=== PATIENT | male | born 1995 ===

== ENCOUNTER 2018-06-14 13:18 | Inpatient (IN) | payer OTHER ==
[2018-06-14] MEDS ORDERED: Iohexol 240 (50 ml) PO ONE (14:22)
[2018-06-14] MEDS ORDERED: Sodium Chloride 0.9% 1,000 ML IV STA (14:23)
--- NOTE | 2018-06-14 14:28 | ED PDOC ---
HPI: Abdomen Time Seen by Provider: 06/14/18 13:48 Chief Complaint (Nursing): Abdominal Pain Chief Complaint (Provider): Abdominal pain History Per: Patient History/Exam Limitations: no limitations Onset/Duration Of Symptoms: Days Current Symptoms Are (Timing): Still Present Location Of Pain/Discomfort: RLQ Additional History Per: Patient Additional Complaint(s): 22yo male, otherwise well, comes to ER reports right lower quadrant abdominal pain x 1 day. Patient reports associated subjective fever and vomiting as well. No chest pain, shortness of breath, diarrhea or constipation. No other complaints. Past Medical History Reviewed: Historical Data, Nursing Documentation, Vital Signs Vital Signs: Last Vital Signs Temp 101.9 F H 06/14/18 13:20 Pulse 116 H 06/14/18 13:20 Resp 16 06/14/18 13:20 BP 141/71 06/14/18 13:20 Pulse Ox 100 06/14/18 13:20 - Medical History PMH: No Chronic Diseases - Surgical History Surgical History: No Surg Hx - Family History Family History: States: No Known Family Hx - Allergies Allergies/Adverse Reactions: Allergies Allergy/AdvReac Type Severity Reaction Status Date / Time shrimp Allergy SWELLING Verified 06/14/18 13:20 Review of Systems ROS Statement: Except As Marked, All Systems Reviewed And Found Negative Constitutional: Positive for: Fever (subjective) Cardiovascular: Negative for: Chest Pain Respiratory: Negative for: Shortness of Breath Gastrointestinal: Positive for: Vomiting, Abdominal Pain. Negative for: Diarrhea, Constipation Musculoskeletal: Negative for: Back Pain Physical Exam - Reviewed Nursing Documentation Reviewed: Yes Vital Signs Reviewed: Yes - Physical Exam Appears: Positive for: Non-toxic Head Exam: Positive for: ATRAUMATIC, NORMAL INSPECTION, NORMOCEPHALIC Skin: Positive for: Normal Color Eye Exam: Positive for: Normal appearance Neck: Positive for: Normal, Supple Cardiovascular/Chest: Positive for: Regular Rate, Rhythm Respiratory: Positive for: Normal Breath Sounds Gastrointestinal/Abdominal: Positive for: Soft, Tenderness (right lower quadrant tenderness; +McBurney's point tenderness). Negative for: Mass, Guarding, Rebound Back: Positive for: Normal Inspection Extremity: Positive for: Normal ROM. Negative for: Pedal Edema Neurologic/Psych: Positive for: Alert, Oriented - ECG O2 Sat by Pulse Oximetry: 100 (RA) Pulse Ox Interpretation: Normal Medical Decision Making Medical Decision Making: Impression: Abdominal pain r/o appendicitis Plan: -- Labs -- CT Abdomen/Pelvis w/ PO & IV Contrast -- IV Fluids -- Tylenol 650mg PO -- Toradol 30mg IV -- Pepcid 20mg IV -- Zofran 4mg IV 1500 Patient signed out to Dr. Talley pending labs, CT, reassessment. Scribe Attestation: Documented by Janet Castellano, acting as a scribe for Greyson Kaiser MD. Provider Scribe Attestation: All medical record entries made by the Scribe were at my direction and personally dictated by me. I have reviewed the chart and agree that the record accurately reflects my personal performance of the history, physical exam, medical decision making, and the department course for this patient. I have also personally directed, reviewed, and agree with the discharge instructions and disposition. Disposition - Patient ED Disposition Is Patient to be Admitted: Transfer of Care - Disposition Disposition: Transfer of Care Disposition Time: 15:00 Condition: STABLE Forms: [employer] (Vietnamese)
[2018-06-14] MEDS ORDERED: Iohexol 240 (50 ml) ONE (15:01)
[2018-06-14 15:05] LABS: BASO % 0.2 % (0.0-2.0); EOS % 0.1 % (0.0-4.0); HEMOGLOBIN 15.8 g/dL (12.0-18.0); LYMPH # 0.7 K/uL (1.0-4.3); LYMPH % 6.6 % (20.0-40.0); MEAN CELL VOLUME 91.9 fl (80.0-94.0); MEAN CORPUSCULAR HEMOGLOBIN 31.8 pg (27.0-31.0); MEAN CORPUSCULAR HGB CONC 34.6 g/dL (33.0-37.0); MEAN PLATELET VOLUME 7.3 fl (7.2-11.7); MONO # 0.4 K/uL (0.0-0.8); MONO % 3.6 % (0.0-10.0); NEUT % 89.5 % (50.0-75.0); PLATELET COUNT 308 K/uL (130-400); RBC 4.97 Mil/uL (4.40-5.90); RED CELL DISTRIBUTION WIDTH 13.1 % (11.5-14.5); WHITE BLOOD COUNT 10.1 K/uL (4.8-10.8)
--- NOTE | 2018-06-14 15:11 | ED PDOC ---
- Laboratory Results Result Diagrams: 06/16/18 07:00 06/15/18 06:00 - ECG O2 Sat by Pulse Oximetry: 100 (RA) Pulse Ox Interpretation: Normal Medical Decision Making Medical Decision Makin Patient signed out to me by Dr. Kaiser pending ER workup, reassessment and final dispo. 1800 CT FINDINGS: LOWER THORAX: Unremarkable. LIVER: Unremarkable. No gross lesion or ductal dilatation. GALLBLADDER AND BILE DUCTS: Unremarkable. PANCREAS: Unremarkable. No gross lesion or ductal dilatation. SPLEEN: Unremarkable. ADRENALS: Unremarkable. No mass. KIDNEYS AND URETERS: Unremarkable. No hydronephrosis. No solid mass. VASCULATURE: Unremarkable. No aortic aneurysm. No aortic atherosclerotic calcification or mural plaque present. BOWEL: Unremarkable. No obstruction. No gross mural thickening. APPENDIX: The appendix is enlarged surrounding with inflammatory changes and contains and pending collects in the proximal portion. Findings are consistent with acute appendicitis. PERITONEUM: Unremarkable. No free fluid. No free air. LYMPH NODES: Unremarkable. No enlarged lymph nodes. BLADDER: Unremarkable. REPRODUCTIVE: Unremarkable. BONES: No acute fracture. OTHER FINDINGS: None. IMPRESSION: Findings consistent with appendicoliths and acute appendicitis. No evidence of abscess formation or free air. [address] Arroyo and surgical coordinator Dr. Jacobs, and patient to be admitted under Dr. Arroyo. Dr. Jacobs to evaluate patient in ER. Discussed with patient findings and plan of care and is agreeable. Scribe Attestation: Documented by Janet Castellano, acting as a scribe for Breanna Talley MD Provider Scribe Attestation: All medical record entries made by the Scribe were at my direction and personally dictated by me. I have reviewed the chart and agree that the record accurately reflects my personal performance of the history, physical exam, medical decision making, and the department course for this patient. I have also personally directed, reviewed, and agree with the discharge instructions and disposition. Disposition Counseled Patient/Family Regarding: Studies Performed, Diagnosis - Clinical Impression Clinical Impression: Appendicitis - POA Present On Arrival: None - Disposition Disposition: Admitted as In-Patient Disposition Time: 18:50 Condition: STABLE
[2018-06-14 15:26] LABS: ALB/GLOB RATIO 1.3 (1.0-2.1); ALBUMIN 4.8 g/dL (3.5-5.0); ALT/SGPT 143 U/L (21-72); AST/SGOT 54 U/L (17-59); BLOOD UREA NITROGEN 11 mg/dl (9-20); CALCIUM 9.7 mg/dL (8.4-10.2); GFR NON-AFRICAN AMERICAN > 60
[2018-06-14 15:42] LABS: VENOUS BLOOD GAS BASE EXCESS 2.6 mmol/L (0.0-2.0); VENOUS BLOOD GAS PCO2 41 mmHg (40-60); VENOUS BLOOD GAS PO2 43 mm/Hg (30-55); VENOUS BLOOD PH 7.43 (7.32-7.43)
[2018-06-14 16:00] LABS: BANDS 5 % (0-2); LYMPHOCYTE 11 % (20-50); MONOCYTE 7 % (0-10); NEUTROPHIL 77 % (42-75); TOTAL CELLS COUNTED 100
[2018-06-14 16:04] LABS: PLATELET ESTIMATE NORMAL (NORMAL)
[2018-06-14] MEDS ORDERED: Sodium Chloride 0.9% 50 ML IV ONE (17:07)
[2018-06-14] MEDS ORDERED: Iohexol 300 100 ML IJ ONE (17:07)
--- NOTE | 2018-06-14 18:05 | CT ---
Date of service: 06/14/2018 PROCEDURE: CT Abdomen and Pelvis with contrast HISTORY: rlq abd pain COMPARISON: None. TECHNIQUE: Contrast dose: 95 cc of Omnipaque 300 intravenously. Axial and reformatted coronal and sagittal CT images of the abdomen and pelvis were obtained after IV and oral contrast administration. Radiation dose: Total exam DLP = 1065.29 mGy-cm. This CT exam was performed using one or more of the following dose reduction techniques: Automated exposure control, adjustment of the mA and/or kV according to patient size, and/or use of iterative reconstruction technique. FINDINGS: LOWER THORAX: Unremarkable. LIVER: Unremarkable. No gross lesion or ductal dilatation. GALLBLADDER AND BILE DUCTS: Unremarkable. PANCREAS: Unremarkable. No gross lesion or ductal dilatation. SPLEEN: Unremarkable. ADRENALS: Unremarkable. No mass. KIDNEYS AND URETERS: Unremarkable. No hydronephrosis. No solid mass. VASCULATURE: Unremarkable. No aortic aneurysm. No aortic atherosclerotic calcification or mural plaque present. BOWEL: Unremarkable. No obstruction. No gross mural thickening. APPENDIX: The appendix is enlarged surrounding with inflammatory changes and contains and pending collects in the proximal portion. Findings are consistent with acute appendicitis. PERITONEUM: Unremarkable. No free fluid. No free air. LYMPH NODES: Unremarkable. No enlarged lymph nodes. BLADDER: Unremarkable. REPRODUCTIVE: Unremarkable. BONES: No acute fracture. OTHER FINDINGS: None. IMPRESSION: Findings consistent with appendicoliths and acute appendicitis. No evidence of abscess formation or free air.
[2018-06-14] MEDS ORDERED: Piperacillin/Tazobact 3.375 GM in Sodium Chloride 0.9% 100 ML IV STA (18:32)
--- NOTE | 2018-06-14 19:21 | CP.PCM.HP ---
History of Present Illness - History of Present Illness History of Present Illness: Surgery: Dr. Arroyo CC: Abd pain HPI: 22M w. no significant pmh presents to ED with RLQ abd pain x 1 day. Pain is constant, it radiates to the groin, there are no alleviating or aggravating factors. Pt has decreased appetite and reports nausea. He denies vomiting/diarrhea. He does have fever and chills. CT in ED was consistent w. a cute appendicitis PMH: none PSH: none Meds: none ALL: Shrimp Social: +ETOH/marijuana, no tobacco Fhx: Non-contributory Present on Admission - Present on Admission Any Indicators Present on Admission: No Review of Systems - Review of Systems All systems: reviewed and no additional remarkable complaints except (HPI) Past Patient History - Past Medical History & Family History Past Medical History?: No - Past Social History Smoking Status: Current Some Days Smoker - PSYCHIATRIC Hx Substance Use: No - SURGICAL HISTORY Hx Surgeries: No Meds Allergies/Adverse Reactions: Allergies Allergy/AdvReac Type Severity Reaction Status Date / Time shrimp Allergy SWELLING Verified 06/14/18 13:20 Physical Exam - Constitutional Appears: Non-toxic, No Acute Distress - Head Exam Head Exam: ATRAUMATIC, NORMOCEPHALIC - Eye Exam Eye Exam: EOMI - ENT Exam ENT Exam: Mucous Membranes Moist - Neck Exam Neck exam: Positive for: Full Rom - Respiratory Exam Respiratory Exam: NORMAL BREATHING PATTERN. absent: Accessory Muscle Use, Respiratory Distress - GI/Abdominal Exam GI & Abdominal Exam: Rebound (RLQ), Soft, Tenderness (RLQ). absent: Distended, Firm, Guarding, Rigid - Extremities Exam Extremities exam: Negative for: calf tenderness, pedal edema - Neurological Exam Neurological exam: Alert, Oriented x3 - Psychiatric Exam Psychiatric exam: Normal Affect, Normal Mood - Skin Skin Exam: Dry, Normal Color, Warm Results - Vital Signs Recent Vital Signs: Last Vital Signs Temp 98.5 F 06/14/18 17:17 Pulse 80 06/14/18 19:11 Resp 16 06/14/18 17:17 BP 96/57 L 06/14/18 17:17 Pulse Ox 100 06/14/18 18:58 - Labs Result Diagrams: 06/14/18 14:50 06/14/18 14:50 Labs: Laboratory Results - last 24 hr 06/14/18 06/14/1818 14:50 14:50 15:37 WBC 10.1 RBC 4.97 Hgb 15.8 Hct 45.7 MCV 91.9 MCH 31.8 H MCHC 34.6 RDW 13.1 Plt Count 308 MPV 7.3 Neut % (Auto) 89.5 H Lymph % (Auto) 6.6 L Mora % (Auto) 3.6 Eos % (Auto) 0.1 Baso % (Auto) 0.2 Neut # (Auto) 9.0 H Lymph # (Auto) 0.7 L Mora # (Auto) 0.4 Eos # (Auto) 0.0 Baso # (Auto) 0.0 Neutrophils % (Manual) 77 H Band Neutrophils % 5 H Lymphocytes % (Manual) 11 L Monocytes % (Manual) 7 Platelet Estimate Normal pO2 43 VBG pH 7.43 VBG pCO2 41 VBG HCO3 26.5 VBG Total CO2 28.5 H VBG O2 Sat (Calc) 82.1 H VBG Base Excess 2.6 H VBG Potassium 3.5 L Glucose 101 Lactate 1.8 FiO2 21.0 Sodium 140 137.0 Potassium 3.8 Chloride 100 104.0 Carbon Dioxide 29 Anion Gap 15 BUN 11 Creatinine 0.9 Est GFR ( Amer) > 60 Est GFR (Non-Af Amer) > 60 Random Glucose 111 H Calcium 9.7 Total Bilirubin 1.7 H AST 54 ALT 143 H Alkaline Phosphatase 56 Total Protein 8.6 H Albumin 4.8 Globulin 3.8 Albumin/Globulin Ratio 1.3 Venous Blood Potassium 3.5 L - Imaging and Cardiology CT scan - abdomen Status: Image reviewed by me, Report reviewed by me Assessment & Plan - Assessment and Plan (Free Text) Assessment: 22M w. appendicitis -OR tonight, consent in chart, risks/benefits d/w pt -NPO -IVF -abx -pain management -d/w attending Marvinitis PGY4 Decision To Admit - Pt Status Changed To: Hospital Disposition Of: Inpatient - Admit Certification Admit to Inpatient:: After my assessment, the patient will require hospitalization for at least two midnights. This is because of the severity of symptoms shown, intensity of services needed, and/or the medical risk in this patient being treated as an outpatient. - . Bed Request Type: Med/Surg Admitting Physician: Juan Ramon Arroyo
[2018-06-14] MEDS ORDERED: Sodium Chloride 0.9% 1,000 ML IV SCH (19:30)
[2018-06-14] MEDS ORDERED: STERILE IRRIGATING SOLUTION 30 ML IR ONE (19:40)
[2018-06-14] MEDS ORDERED: Succinylcholine 200 mg/10 ml Inj IV ONE (19:55)
[2018-06-14] MEDS ORDERED: Rocuronium 10 mg/ml (5 ml) ONE (19:55)
[2018-06-14] MEDS ORDERED: Propofol 10 mg/ml Inj (20 ML) ONE (19:55)
[2018-06-14] MEDS ORDERED: Midazolam 2 MG/2 ML VIAL ONE (19:55)
[2018-06-14] MEDS ORDERED: Lactated Ringer's 500 ML IV ONE (19:55)
[2018-06-14] MEDS ORDERED: Neostigmine 1:1000 (1 mg/ml) Inj ONE (20:50)
[2018-06-14] MEDS ORDERED: Lactated Ringer's 1,000 ML IV PRN (21:13)
[2018-06-14] MEDS ORDERED: Oxycodone/Acetaminophen 5/325 mg Tab PO PRN (21:16)
--- NOTE | 2018-06-14 21:16 | PCM.SURG1 ---
Surgeon's Initial Post Op Note - Surgeon's Notes Surgeon: [employer] Representative: David Type of Anesthesia: General Endo Pre-Operative Diagnosis: Appendicitis Operative Findings: Gangrenous appendix Post-Operative Diagnosis: appendcitis Operation Performed: laparoscopic appendectomy Specimen/Specimens Removed: appendix Estimated Blood Loss: EBL {In ML}: 10 Blood Products Given: N/A Drains Used: No Drains Post-Op Condition: Good Date of Surgery/Procedure: 06/14/18 Time of Surgery/Procedure: 21:15
[2018-06-14] MEDS: HYDROmorphone 0.5 mg/0.5 ml ISec IVP PRN ×2 (21:25→22:00)
[2018-06-14] MEDS ORDERED: Piperacillin/Tazobact 3.375 GM in Sodium Chloride 0.9% 100 ML IVPB SCH (22:00)
[2018-06-15] MEDS: Piperacillin/Tazobact 3.375 GM in Sodium Chloride 0.9% 100 ML IVPB SCH ×5 (00:09→23:32)
[2018-06-15] MEDS: Lactated Ringer's 1,000 ML IV SCH ×3 (05:16→23:30)
[2018-06-15] MEDS ORDERED: oxyCODONE 5 mg Immediate Release Tab PO PRN (05:55)
[2018-06-15 06:40] LABS: HEMOGLOBIN 13.4 g/dL (12.0-18.0); MEAN CELL VOLUME 92.9 fl (80.0-94.0); MEAN CORPUSCULAR HEMOGLOBIN 31.6 pg (27.0-31.0); RBC 4.24 Mil/uL (4.40-5.90); RED CELL DISTRIBUTION WIDTH 13.4 % (11.5-14.5); WHITE BLOOD COUNT 5.8 K/uL (4.8-10.8)
[2018-06-15 06:55] LABS: BLOOD UREA NITROGEN 7 mg/dl (9-20); CALCIUM 8.5 mg/dL (8.4-10.2); GFR NON-AFRICAN AMERICAN > 60
--- NOTE | 2018-06-15 08:17 | CP.PCM.PN ---
Addendum entered and electronically signed by Juan Ramon Arroyo MD 06/16/18 13:19: Febrile postop, otherwise feeling well, tolerating diet, abdomen benign. Continue IV antibiotics, monitor temp. Original Note: Subjective - Date & Time of Evaluation Date of Evaluation: 06/15/18 Time of Evaluation: 07:00 - Subjective Subjective: GENERAL SURGERY PROGRESS NOTE FOR DR. ARROYO Patient seen and examined at bedside. Overnight, he was febrile up to 104.5. He received tylenol, motrin, and ice packs were applied to axilla, groin and head. Temp this AM still febrile but improved. He has not been OOB yet. Hasn't had yoni akfast yet. Pain well controlled. Objective - Vital Signs/Intake and Output Vital Signs (last 24 hours): Temp Pulse Resp BP Pulse Ox 101.9 F H 96 H 18 112/65 98 06/15/18 06:05 06/15/18 04:35 06/15/18 04:35 06/15/18 04:35 06/15/18 04:35 Intake and Output: 06/15/18 06/15/18 06:59 18:59 Intake Total 1100 Balance 1100 - Medications Medications: Current Medications Acetaminophen (Tylenol 325mg Tab) 650 mg PO Q6 PRN PRN Reason: Fever >100.4 F Last Admin: 06/15/18 01:56 Dose: 650 mg Hydromorphone HCl (Dilaudid) 0.5 mg IVP Q15M PRN PRN Reason: Pain, moderate (4-7) Last Admin: 06/14/18 22:00 Dose: 0.5 mg Hydromorphone HCl (Dilaudid) 0.5 mg IVP Q4 PRN PRN Reason: Pain, severe (8-10) Dextrose/Sodium Chloride (Dextrose 5%-0.9% Ns 500 Ml) 1,000 mls @ 125 mls/hr IV .Q8H SIVA Sodium Chloride (Sodium Chloride 0.9%) 1,000 mls @ 125 mls/hr IV .Q8H SIVA Last Admin: 06/14/18 22:25 Dose: 0 mls Lactated Ringer's (Lactated Ringer's) 1,000 mls @ 100 mls/hr IV .Q10H PRN PRN Reason: Hypotension Last Admin: 06/14/18 21:05 Dose: 100 mls Piperacillin Sod/Tazobactam (Sod 3.375 gm/ Sodium Chloride) 100 mls @ 100 mls/hr IVPB Q6H REPLACED BY [facility]; Protocol Last Admin: 06/15/18 05:25 Dose: 100 mls/hr Lactated Ringer's (Lactated Ringer's) 1,000 mls @ 140 mls/hr IV .Q7H9M SIVA Last Admin: 06/15/18 05:16 Dose: 140 mls/hr Ibuprofen (Motrin Tab) 600 mg PO Q6 PRN PRN Reason: Fever >100.4 F Last Admin: 06/15/18 05:07 Dose: 600 mg Oxycodone HCl (Oxycodone Immediate Release Tab) 5 mg PO Q4 PRN PRN Reason: Pain, moderate (4-7) - Labs Labs: 06/15/18 06:00 06/15/18 06:00 - Constitutional Appears: Non-toxic, No Acute Distress - Head Exam Head Exam: ATRAUMATIC, NORMAL INSPECTION - Respiratory Exam Respiratory Exam: NORMAL BREATHING PATTERN. absent: Respiratory Distress - Cardiovascular Exam Cardiovascular Exam: +S1, +S2 - GI/Abdominal Exam GI & Abdominal Exam: Soft, Tenderness (mild tenderness RLQ and incision sites). absent: Distended, Firm, Guarding, Rigid, Rebound Additional comments: Dermabond in place over laparoscopic incision sites - Neurological Exam Neurological Exam: Alert, Awake, Oriented x3 - Psychiatric Exam Psychiatric exam: Normal Affect, Normal Mood - Skin Skin Exam: Dry, Normal Color, Warm Assessment and Plan - Assessment and Plan (Free Text) Assessment: 22yo M with appendicitis s/p laparoscopic appendectomy POD#1 - Febrile overnight Tmax 104.5, currently 101.9 - No leukocytosis, WBC 5.8 - Will continue IV antibiotics given high fever overnight - Encouraged OOB, ambulation, and IS use - Discussed plan with Dr. Cruz Manrique PGY-4
[2018-06-16] MEDS: Piperacillin/Tazobact 3.375 GM in Sodium Chloride 0.9% 100 ML IVPB SCH ×4 (05:34→23:49)
[2018-06-16 07:56] LABS: BASO % 0.2 % (0.0-2.0); EOS # 0.1 K/uL (0.0-0.7); EOS % 2.5 % (0.0-4.0); HEMOGLOBIN 13.3 g/dL (12.0-18.0); LYMPH # 0.8 K/uL (1.0-4.3); LYMPH % 19.2 % (20.0-40.0); MEAN CELL VOLUME 92.2 fl (80.0-94.0); MEAN CORPUSCULAR HEMOGLOBIN 31.8 pg (27.0-31.0); MEAN CORPUSCULAR HGB CONC 34.5 g/dL (33.0-37.0); MEAN PLATELET VOLUME 7.2 fl (7.2-11.7); MONO # 0.3 K/uL (0.0-0.8); MONO % 7.4 % (0.0-10.0); NEUT # 2.9 K/uL (1.8-7.0); NEUT % 70.7 % (50.0-75.0); NRBC % 0.1 % (0.0-0.0); RBC 4.19 Mil/uL (4.40-5.90); RED CELL DISTRIBUTION WIDTH 12.9 % (11.5-14.5); WHITE BLOOD COUNT 4.2 K/uL (4.8-10.8)
[2018-06-16] MEDS: Lactated Ringer's 1,000 ML IV SCH ×2 (10:14→19:38)
--- NOTE | 2018-06-16 15:25 | CP.PCM.PN ---
Subjective - Date & Time of Evaluation Date of Evaluation: 06/16/18 Time of Evaluation: 07:00 - Subjective Subjective: GENERAL SURGERY PROGRESS NOTE FOR DR. CASTANEDA Patient seen and examined at bedside. Overnight, continued to be febrile, with Tmax 103.9 this AM. Pt requesting to go home. Tolerating diet, denies nausea or vomiting. Pain controlled. Ambulating. Objective - Vital Signs/Intake and Output Vital Signs (last 24 hours): Temp Pulse Resp BP Pulse Ox 98.9 F 66 20 99/58 L 97 06/16/18 12:26 06/16/18 12:26 06/16/18 12:26 06/16/18 12:26 06/16/18 12:26 Intake and Output: 06/16/18 06/16/18 06:59 18:59 Intake Total 2079 Balance 2079 - Medications Medications: Current Medications Acetaminophen (Tylenol 325mg Tab) 650 mg PO Q6 PRN PRN Reason: Fever >100.4 F Last Admin: 06/16/18 08:32 Dose: 650 mg Hydromorphone HCl (Dilaudid) 0.5 mg IVP Q15M PRN PRN Reason: Pain, moderate (4-7) Last Admin: 06/14/18 22:00 Dose: 0.5 mg Hydromorphone HCl (Dilaudid) 0.5 mg IVP Q4 PRN PRN Reason: Pain, severe (8-10) Dextrose/Sodium Chloride (Dextrose 5%-0.9% Ns 500 Ml) 1,000 mls @ 125 mls/hr IV .Q8H SIVA Sodium Chloride (Sodium Chloride 0.9%) 1,000 mls @ 125 mls/hr IV .Q8H SIVA Last Admin: 06/14/18 22:25 Dose: 0 mls Lactated Ringer's (Lactated Ringer's) 1,000 mls @ 100 mls/hr IV .Q10H PRN PRN Reason: Hypotension Last Admin: 06/14/18 21:05 Dose: 100 mls Piperacillin Sod/Tazobactam (Sod 3.375 gm/ Sodium Chloride) 100 mls @ 100 mls/hr IVPB Q6H SIVA; Protocol Last Admin: 06/16/18 11:08 Dose: 100 mls/hr Lactated Ringer's (Lactated Ringer's) 1,000 mls @ 140 mls/hr IV .Q7H9M SIVA Last Admin: 06/16/18 10:14 Dose: 140 mls/hr Ibuprofen (Motrin Tab) 600 mg PO Q6 PRN PRN Reason: Fever >100.4 F Last Admin: 06/16/18 07:03 Dose: 600 mg Oxycodone HCl (Oxycodone Immediate Release Tab) 5 mg PO Q4 PRN PRN Reason: Pain, moderate (4-7) - Labs Labs: 06/16/18 07:00 06/15/18 06:00 - Constitutional Appears: Non-toxic, No Acute Distress - Head Exam Head Exam: ATRAUMATIC, NORMAL INSPECTION - Eye Exam Eye Exam: EOMI, Normal appearance - Respiratory Exam Respiratory Exam: NORMAL BREATHING PATTERN. absent: Respiratory Distress - Cardiovascular Exam Cardiovascular Exam: +S1, +S2. absent: Tachycardia - GI/Abdominal Exam GI & Abdominal Exam: Soft, Tenderness (mild tenderness to RLQ). absent: Distended, Firm, Guarding, Rigid, Rebound Additional comments: Dermabond in place over laparoscopic incision sites - Neurological Exam Neurological Exam: Alert, Awake, Oriented x3 - Psychiatric Exam Psychiatric exam: Normal Affect, Normal Mood - Skin Skin Exam: Normal Color, Warm Assessment and Plan - Assessment and Plan (Free Text) Assessment: 22yo M with appendicitis s/p laparoscopic appendectomy POD#2 - Febrile overnight Tmax 103.9, currently afebrile - No leukocytosis, WBC 4.2 - Will continue IV antibiotics given high fever - Encouraged OOB, ambulation, and IS use - Discussed plan with Dr. Cruz Manrique PGY-4
--- NOTE | 2018-06-16 23:20 | OP ---
PROCEDURE DATE: 06/14/2018 SURGEON: Juan Ramon Arroyo MD OUTPATIENT CASE MANAGER: Dr. Hernandez. TYPE OF ANESTHESIA: General. ANESTHESIA ADMINISTERED BY: Dr. Mccallum. PREOPERATIVE DIAGNOSIS: Acute appendicitis. POSTOPERATIVE DIAGNOSIS: Acute appendicitis with early gangrene. PROCEDURE: Laparoscopic appendectomy. DESCRIPTION OF OPERATION: With the patient in the supine position under adequate general anesthesia, the abdomen was prepped and draped in the usual sterile manner. Veress needle puncture was performed in the umbilicus with insufflation to 15 cm water pressure of CO2, and a 10 mm laparoscopic trocar was inserted via an infraumbilical incision. Under direct vision, additional 5 mm and 12 mm trocars were inserted in the left lower quadrant. The appendix was visualized. It was noted to be dilated and discolored with a catarrhal appearance, suspicious for impending gangrene. The appendix was freed from dense attachments to the pelvic sidewall using the harmonic scalpel, and the appendix was then gently elevated off the terminal ileum as well. The mesoappendix was dissected and divided with an Endo-KHLOE stapler, and the appendix itself was then also divided close to the cecum via an intact stump using the Endo-KHLOE stapler. The appendix was placed in a specimen retrieval bag and removed via the 12 mm port site. The iliac fossa and pelvis were irrigated and suctioned, and the pneumoperitoneum was released and the trocars were removed. The 12 mm port site was closed with a fascial [id number] suture of 0 Vicryl. All incisions were closed with 4-0 Monocryl subcuticular sutures and Steri-Strips. Dry sterile dressings were applied. The patient tolerated the procedure well and transferred to recovery room in stable condition. Estimated blood loss for the procedure was 10 ml. Juan Ramon Arroyo MD
[2018-06-17] MEDS: Lactated Ringer's 1,000 ML IV SCH (04:23)
[2018-06-17] MEDS: Piperacillin/Tazobact 3.375 GM in Sodium Chloride 0.9% 100 ML IVPB SCH ×2 (05:08→11:25)
--- NOTE | 2018-06-17 07:47 | CP.PCM.DIS ---
Provider - Provider Date of Admission: 06/14/18 18:53 Attending physician: Juan Ramon Arroyo MD Time Spent in preparation of Discharge (in minutes): 5 Diagnosis - Discharge Diagnosis (1) Acute appendicitis Status: Resolved Priority: High Hospital Course - Lab Results Lab Results: Micro Results 06/14/18 15:10 Blood-Venous Blood Culture - Preliminary NO GROWTH AFTER 48 HOURS 06/14/18 14:50 Blood-Venous Blood Culture - Preliminary NO GROWTH AFTER 48 HOURS Most Recent Lab Values WBC 4.2 K/uL (4.8-10.8) L 06/16/18 07:00 RBC 4.19 Mil/uL (4.40-5.90) L 06/16/18 07:00 Hgb 13.3 g/dL (12.0-18.0) 06/16/18 07:00 Hct 38.6 % (35.0-51.0) 06/16/18 07:00 MCV 92.2 fl (80.0-94.0) 06/16/18 07:00 MCH 31.8 pg (27.0-31.0) H 06/16/18 07:00 MCHC 34.5 g/dL (33.0-37.0) 06/16/18 07:00 RDW 12.9 % (11.5-14.5) 06/16/18 07:00 Plt Count 213 K/uL (130-400) 06/16/18 07:00 MPV 7.2 fl (7.2-11.7) 06/16/18 07:00 Neut % (Auto) 70.7 % (50.0-75.0) 06/16/18 07:00 Lymph % (Auto) 19.2 % (20.0-40.0) L 06/16/18 07:00 Sherman % (Auto) 7.4 % (0.0-10.0) 06/16/18 07:00 Eos % (Auto) 2.5 % (0.0-4.0) 06/16/18 07:00 Baso % (Auto) 0.2 % (0.0-2.0) 06/16/18 07:00 Neut # (Auto) 2.9 K/uL (1.8-7.0) 06/16/18 07:00 Lymph # (Auto) 0.8 K/uL (1.0-4.3) L 06/16/18 07:00 Sherman # (Auto) 0.3 K/uL (0.0-0.8) 06/16/18 07:00 Eos # (Auto) 0.1 K/uL (0.0-0.7) 06/16/18 07:00 Baso # (Auto) 0.0 K/uL (0.0-0.2) 06/16/18 07:00 Neutrophils % (Manual) 77 % (42-75) H 06/14/18 14:50 Band Neutrophils % 5 % (0-2) H 06/14/18 14:50 Lymphocytes % (Manual) 11 % (20-50) L 06/14/18 14:50 Monocytes % (Manual) 7 % (0-10) 06/14/18 14:50 Platelet Estimate Normal (NORMAL) 06/14/18 14:50 pO2 43 mm/Hg (30-55) 06/14/18 15:37 VBG pH 7.43 (7.32-7.43) 06/14/18 15:37 VBG pCO2 41 mmHg (40-60) 06/14/18 15:37 VBG HCO3 26.5 mmol/L 06/14/18 15:37 VBG Total CO2 28.5 mmol/L (22-28) H 06/14/18 15:37 VBG O2 Sat (Calc) 82.1 % (40-65) H 06/14/18 15:37 VBG Base Excess 2.6 mmol/L (0.0-2.0) H 06/14/18 15:37 VBG Potassium 3.5 mmol/L (3.6-5.2) L 06/14/18 15:37 Sodium 137.0 mmol/L (132-148) 06/14/18 15:37 Chloride 104.0 mmol/L (98-107) 06/14/18 15:37 Glucose 101 mg/dL (75-110) 06/14/18 15:37 Lactate 1.8 mmol/L (0.7-2.1) 06/14/18 15:37 FiO2 21.0 % 06/14/18 15:37 Sodium 137 mmol/l (132-148) 06/15/18 06:00 Potassium 3.6 MMOL/L (3.6-5.0) 06/15/18 06:00 Chloride 104 mmol/L (98-107) 06/15/18 06:00 Carbon Dioxide 24 mmol/L (22-30) 06/15/18 06:00 Anion Gap 13 (10-20) 06/15/18 06:00 BUN 7 mg/dl (9-20) L 06/15/18 06:00 Creatinine 0.8 mg/dl (0.8-1.5) 06/15/18 06:00 Est GFR ( Amer) > 60 06/15/18 06:00 Est GFR (Non-Af Amer) > 60 06/15/18 06:00 Random Glucose 109 mg/dL (75-110) 06/15/18 06:00 Lactic Acid 0.7 MMOL/L (0.7-2.1) 06/16/18 07:00 Calcium 8.5 mg/dL (8.4-10.2) 06/15/18 06:00 Total Bilirubin 1.7 mg/dl (0.2-1.3) H 06/14/18 14:50 AST 54 U/L (17-59) 06/14/18 14:50 ALT 143 U/L (21-72) H 06/14/18 14:50 Alkaline Phosphatase 56 U/L (38-126) 06/14/18 14:50 Total Protein 8.6 G/DL (6.3-8.2) H 06/14/18 14:50 Albumin 4.8 g/dL (3.5-5.0) 06/14/18 14:50 Globulin 3.8 gm/dL (2.2-3.9) 06/14/18 14:50 Albumin/Globulin Ratio 1.3 (1.0-2.1) 06/14/18 14:50 Venous Blood Potassium 3.5 mmol/L (3.6-5.2) L 06/14/18 15:37 - Hospital Course Hospital Course: 22M with no PMHx presented to [facility] for abdominal pain. Pt was found to have acute appendicitis after a CT abdomen/pelvis was done in the ER. Pt was taken to the OR for lap appendectomy which he tolerated well. Post-op pt had fevers, spiking as high as 103. He was kept on IV ABX and due to persistent fevers he was kept in the hospital for 2 days for IV ABX tx. Pt tolerating regular diet, having BMs, and ambulating. He hasn't had any more fevers overnight and will be DC home with Augmentin PO. Discharge Exam - Head Exam Head Exam: ATRAUMATIC, NORMOCEPHALIC - Eye Exam Eye Exam: Normal appearance - ENT Exam ENT Exam: Mucous Membranes Moist - Respiratory Exam Respiratory Exam: NORMAL BREATHING PATTERN - Cardiovascular Exam Cardiovascular Exam: RRR - GI/Abdominal Exam GI & Abdominal Exam: absent: Distended, Guarding, Rebound, Tenderness Additional comments: Incisions C/D/I - Neurological Exam Neurological exam: Alert, Oriented x3 - Skin Skin Exam: Dry, Intact, Warm Discharge Plan - Discharge Medications Prescriptions: Amoxicillin/Clavulanate [Augmentin 500 MG-125 MG] 1 tab PO Q12H 5 Days tab - Follow Up Plan Condition: STABLE Disposition: HOME/ ROUTINE Instructions: Appendectomy, Laparoscopic Surgery, Appendectomy, Laparoscopic Surgery (DC)
[2018-06-17 08:44] VITALS: BP 101/56
[2018-06-17 12:34] VITALS: PULSE 71; RESP 16; TEMP 98.6
[2018-06-19 12:52] VITALS: O2SAT 100
== END 2018-06-17 13:21 | disposition home or self-care (01) | DRG 883 ==
LOC: H.ER 13:18 → H.ERHOLD 18:53 → H.PEDS 23:03
PROVIDERS: ADMIT Specialist; ATTEND Specialist
PROC: 0DTJ4ZZ Resection of Appendix, Percutaneous Endoscopic Approach (ICD-10-PCS; principal; 2018-06-14 19:30)
DX: K35.80 Unspecified acute appendicitis (principal); I96 Gangrene, not elsewhere classified; F17.200 Nicotine dependence, unspecified, uncomplicated; R50.82 Postprocedural fever